=== PATIENT | male | born 1955 | race Caucasian/White ===

== ENCOUNTER 2017-11-15 12:45 | Observation (INO) ==
--- NOTE | 2017-11-15 13:11 | Emergency Department Note ---
Disposition Clinical Impression: Rhabdomyolysis due to statin therapy, Renal insufficiency HTN (hypertension) Qualifiers: Hypertension type: essential hypertension Qualified Code(s): I10 - Essential ( primary) hypertension Disposition: Admitted As Inpatient Condition: Fair Time of Disposition: 18:00 Extremity Problem HPI - General Chief complaint: ED Extremity Problem,Nontraumatic Stated complaint: muscle pain Time Seen by Provider: 11/15/17 13:09 Source: patient, family Mode of arrival: ambulatory Limitations: no limitations Nursing Notes Reviewed: Yes Vital Signs Reviewed: Yes - History of Present Illness HPI Narrative: 62-year-old male with past medical history of hypertension and hyperlipidemia presents to the emergency department complaining of lower extremity pain and mild swelling. This started yesterday and was initially located in bilateral legs in both the calves and thighs however he tells me the pain in his left lower extremity resolved as of this morning but the right-sided pain and mild swelling persist. His primary care provider, Ashwini Figueroa PIPELINER in [place]; started patient on Zestoretic and Lipitor 6 months ago. . Patient tells me he is also being worked up for abdominal pain, right upper quadrant, 30 pound weight loss in the past several months recently seen by Dr. Castellon who is recommending ultrasound of the liver. Pain Scale: 5 - Related Data Home Medications Medication Instructions Recorded Confirmed Atorvastatin [Lipitor] 40 mg PO HS 11/15/17 11/15/17 Lisinopril-HCTZ 20-12.5 [Prinzide 1 tab PO DAILY 11/15/17 11/15/17 20-12.5] Allergies Allergy/AdvReac Type Severity Reaction Status Date / Time No Known Allergies Allergy Verified 11/15/17 13:38 Constitutional: Denies: fever, chills, weakness Eyes: Denies: eye pain, eye discharge, vision change ENT ED: Denies: ear pain, throat pain, dental pain, hearing loss, epistaxis, congestion, dysphagia Cardiovascular: Denies: chest pain, palpitations, dyspnea on exertion, syncope Respiratory: Denies: cough, dyspnea, wheezes, hemoptysis, stridor Gastrointestinal: Denies: abdominal pain, nausea, vomiting, diarrhea, constipation, hematemesis, melena, hematochezia Musculoskeletal: Denies: back pain, neck pain, arthralgia, myalgia Integumentary: Denies: rash, abrasion, lesions Neurological: Denies: headache, weakness, confusion, abnormal gait, vertigo Hematological/Lymphatic: Denies: easy bleeding, easy bruising Physical Exam - General Limitations: no limitations General appearance: alert, in no apparent distress - Head Head exam: atraumatic, normocephalic, normal inspection - Eye Eye exam: Present: normal appearance, PERRL, EOMI - ENT ENT exam: normal exam, normal oropharynx, mucous membranes moist - Neck Neck exam: Present: normal inspection, full ROM, trachea midline - Chest Chest inspection: Present: normal inspection, symmetric chest wall rise - Respiratory Respiratory exam: Present: normal lung sounds bilaterally - Cardiovascular Cardiovascular exam: Present: regular rate, normal rhythm, normal heart sounds - Abdominal Exam Abdominal exam: Present: soft, Non-Tender. Absent: tenderness, distention, guarding, rebound, rigidity - Expanded Lower Extremity Exam Hip/Pelvis exam: Present: tenderness (RLE at calf), swelling (Trace pitting). Absent: laceration, ecchymosis, erythema Upper leg exam: Present: tenderness. Absent: swelling, ecchymosis, erythema Knee exam: Absent: tenderness, swelling - Neurological Exam Neurological exam: Present: alert, oriented X3 Course Course Narrative: Patient seen and examined at bedside. He is in no acute distress. Following laboratory findings including elevated CK we gave a fluid bolus and started IVF @150 cc/hr and I discussed the case with hospitalist Dr. Boyce who accepted the patient Vital Signs Temperature 97.6 F 11/15/17 13:03 Pulse Rate 89 11/15/17 13:03 Respiratory Rate 16 11/15/17 13:03 Blood Pressure 136/84 11/15/17 13:03 O2 Sat by Pulse Oximetry 97 11/15/17 13:03 Temperature 98.1 F 11/15/17 19:41 Pulse Rate 70 11/15/17 19:41 Respiratory Rate 16 11/15/17 19:41 Blood Pressure 119/68 11/15/17 19:41 O2 Sat by Pulse Oximetry 98 11/15/17 19:41 Oxygen Delivery Oxygen Delivery Room Air Extremity Problem, N[place] - [facility] Narrative Medical decision making narrative: CK elevated, patient has rhabdomyolysis. I suspect this is due to his statin as the median onset of myopathy following initiation of statin therapy is approximately 6 months and patient denies any recent trauma, falls, etc. Although patient had bilateral lower extremity pain and swelling yesterday, today it is unilateral so we will obtain d-dimer . D-dimer was elevated which may be due to his rhabdomyolysis but we will obtain Doppler studies of his lower extremities to rule out DVT. - Lab Data Lab results reviewed: Yes I reviewed the patient's lab results. Result diagrams: 11/15/17 13:54 11/15/17 13:54 Lab Results 11/15/17 11/15/17 11/15/17 Range/Units 13:54 13:54 13:54 WBC 10.8 (4.3-11.1) K/mcL RBC 5.02 (4.19-5.50) M/mcL Hgb 15.1 (12.9-16.9) g/dL Hct 43.3 (37.5-50.1) % MCV 86.3 (83.0-100.0) fL MCH 30.1 (28.0-33.3) pg MCHC 34.9 (31.6-35.5) g/dL RDW 14.1 (11.5-14.5) % Plt Count 236 (140-400) K/mcL MPV 10.7 (9.4-12.4) fL Immature Gran % 0.3 (0-4) % Seg Neutrophils % 60.1 % Lymphocytes % 26.4 % Monocytes % 5.7 % Eosinophils % 6.8 % Basophils % 0.7 % Neutrophils # 6.5 (1.6-8.9) K/mcL Lymphocytes # 2.8 (0.6-4.6) K/mcL Monocytes # 0.6 (0.0-1.3) K/mcL Eosinophils # 0.7 H (0.0-0.6) K/mcL Basophils # 0.1 (0.0-0.2) K/mcL D-Dimer 1728 H (0-500) ng/mLFEU Sodium 133 L (136-145) mEq/L Potassium 4.6 (3.5-5.1) mEq/L Chloride 107 (98-107) mEq/L Carbon Dioxide 22 L (23-29) mEq/L BUN 33 H (8-23) mg/dL Creatinine 1.64 H (0.70-1.30) mg/dL Est GFR ( Amer) 52 L (> 60) Est GFR (Non-Af Amer) 43 L (> 60) BUN/Creatinine Ratio 20 (6-26) Glucose 121 H (70-105) mg/dL Calculated Osmolality 285 (280-300) Calcium 9.5 (8.6-10.3) mg/dL Total Bilirubin 0.5 (0.3-1.0) mg/dL Direct Bilirubin 0.0 (0.0-0.2) mg/dL Indirect Bilirubin 0.5 (0.0-1.2) mg/dL AST 61 H (13-39) Units/L ALT 41 (7-52) Units/L Alkaline Phosphatase 138 H (34-104) Units/L Creatine Kinase 2473 H (30-223) Units/L Serum Total Protein 7.1 (6.4-8.9) g/dL Albumin 4.0 (3.5-5.7) g/dL Globulin 3.1 (2.4-3.5) g/dL Albumin/Globulin Ratio 1.3 (1.1-2.2) Lipase 30 (11-82) Units/L - Radiology Data Radiology results reviewed: Yes I reviewed the patient's radiology results. Attestation Statement - Attestation Attestation: I, Ravinder Nance DO, examined this patient [id number] and my medical decision-making was reviewed with Jesús Esquivel PGY-3 Resident Physician. I agree with the documented findings, disposition and treatment plan as described except to the extent set forth below. Please see my progress notes for details.
[2017-11-15 14:07] LABS: Basophils # 0.1 K/mcL (0.0-0.2); Basophils % 0.7 %; Eosinophils # 0.7 K/mcL (0.0-0.6); Eosinophils % 6.8 %; Hematocrit 43.3 % (37.5-50.1); Hemoglobin 15.1 g/dL (12.9-16.9); Immature Granulocytes % 0.3 % (0-4); Lymphocytes # 2.8 K/mcL (0.6-4.6); Lymphocytes % 26.4 %; Mean Corpuscular HGB Conc 34.9 g/dL (31.6-35.5); Mean Corpuscular Hemoglobin 30.1 pg (28.0-33.3); Mean Corpuscular Volume 86.3 fL (83.0-100.0); Mean Platelet Volume 10.7 fL (9.4-12.4); Monocytes # 0.6 K/mcL (0.0-1.3); Monocytes % 5.7 %; Neutrophils # 6.5 K/mcL (1.6-8.9); Platelet Count 236 K/mcL (140-400); Red Blood Count 5.02 M/mcL (4.19-5.50); Red Cell Distribution Width 14.1 % (11.5-14.5); Segmented Neutrophils % 60.1 %
[2017-11-15 14:40] LABS: Albumin/Globulin Ratio 1.3 (1.1-2.2); Bilirubin,Indirect 0.5 mg/dL (0.0-1.2); Bilirubin,Total 0.5 mg/dL (0.3-1.0); Calcium 9.5 mg/dL (8.6-10.3); Globulin 3.1 g/dL (2.4-3.5); Potassium 4.6 mEq/L (3.5-5.1); Total Protein 7.1 g/dL (6.4-8.9)
--- NOTE | 2017-11-15 15:04 | Emergency Department Note ---
Disposition Clinical Impression: Rhabdomyolysis due to statin therapy, Renal insufficiency HTN (hypertension) Qualifiers: Hypertension type: essential hypertension Qualified Code(s): I10 - Essential ( primary) hypertension Disposition: Admitted As Inpatient Condition: Fair Time of Disposition: 16:35 General Adult HPI - General Chief complaint: ED Extremity Problem,Nontraumatic Stated complaint: muscle pain Time Seen by Provider: 11/15/17 13:09 Source: patient, family - History of Present Illness Pain Scale: 5 - Related Data Home Medications Medication Instructions Recorded Confirmed Atorvastatin [Lipitor] 40 mg PO HS 11/15/17 11/15/17 Lisinopril-HCTZ 20-12.5 [Prinzide 1 tab PO DAILY 11/15/17 11/15/17 20-12.5] Allergies Allergy/AdvReac Type Severity Reaction Status Date / Time No Known Allergies Allergy Verified 11/15/17 13:38 Past Medical History - Past Medical History Medical history: Reports: hyperlipidemia, hypertension Psychiatric history: Reports: no psych history - Social History Smoking Status: Current every day smoker Smokeless Tobacco Status: No Alcohol use: Reports: occasionally Drug use: Reports: none Physical Exam - General General appearance: alert, in no apparent distress Course Vital Signs Temperature 97.6 F 11/15/17 13:03 Pulse Rate 89 11/15/17 13:03 Respiratory Rate 16 11/15/17 13:03 Blood Pressure 136/84 11/15/17 13:03 O2 Sat by Pulse Oximetry 97 11/15/17 13:03 Temperature 97.6 F 11/15/17 13:27 Pulse Rate 89 11/15/17 13:27 Respiratory Rate 18 11/15/17 16:15 Blood Pressure 126/67 11/15/17 16:15 O2 Sat by Pulse Oximetry 97 11/15/17 13:27 Oxygen Delivery Oxygen Delivery Room Air Medical Decision Making - Lab Data Result diagrams: 11/15/17 13:54 11/15/17 13:54 Lab Results 11/15/17 11/15/17 11/15/17 Range/Units 13:54 13:54 13:54 WBC 10.8 (4.3-11.1) K/mcL RBC 5.02 (4.19-5.50) M/mcL Hgb 15.1 (12.9-16.9) g/dL Hct 43.3 (37.5-50.1) % MCV 86.3 (83.0-100.0) fL MCH 30.1 (28.0-33.3) pg MCHC 34.9 (31.6-35.5) g/dL RDW 14.1 (11.5-14.5) % Plt Count 236 (140-400) K/mcL MPV 10.7 (9.4-12.4) fL Immature Gran % 0.3 (0-4) % Seg Neutrophils % 60.1 % Lymphocytes % 26.4 % Monocytes % 5.7 % Eosinophils % 6.8 % Basophils % 0.7 % Neutrophils # 6.5 (1.6-8.9) K/mcL Lymphocytes # 2.8 (0.6-4.6) K/mcL Monocytes # 0.6 (0.0-1.3) K/mcL Eosinophils # 0.7 H (0.0-0.6) K/mcL Basophils # 0.1 (0.0-0.2) K/mcL D-Dimer 1728 H (0-500) ng/mLFEU Sodium 133 L (136-145) mEq/L Potassium 4.6 (3.5-5.1) mEq/L Chloride 107 (98-107) mEq/L Carbon Dioxide 22 L (23-29) mEq/L BUN 33 H (8-23) mg/dL Creatinine 1.64 H (0.70-1.30) mg/dL Est GFR ( Amer) 52 L (> 60) Est GFR (Non-Af Amer) 43 L (> 60) BUN/Creatinine Ratio 20 (6-26) Glucose 121 H (70-105) mg/dL Calculated Osmolality 285 (280-300) Calcium 9.5 (8.6-10.3) mg/dL Total Bilirubin 0.5 (0.3-1.0) mg/dL Direct Bilirubin 0.0 (0.0-0.2) mg/dL Indirect Bilirubin 0.5 (0.0-1.2) mg/dL AST 61 H (13-39) Units/L ALT 41 (7-52) Units/L Alkaline Phosphatase 138 H (34-104) Units/L Creatine Kinase 2473 H (30-223) Units/L Serum Total Protein 7.1 (6.4-8.9) g/dL Albumin 4.0 (3.5-5.7) g/dL Globulin 3.1 (2.4-3.5) g/dL Albumin/Globulin Ratio 1.3 (1.1-2.2) Lipase 30 (11-82) Units/L Attestation Statement - Attestation Attestation: I, Ravinder Nance DO, examined this patient [id number] and my medical decision-making was reviewed with Jesús Esquivel PGY-3, Resident Physician. I agree with the documented findings, disposition and treatment plan as described except to the extent set forth below. Please see my progress notes for details. 62-year-old male presents to the emergency room for evaluation bilateral lower extremity cramping and pain. Patient is a see symptoms on and off for the last several days. The left lower extremity appears to be better at this time the right lower extremity still has discomfort. Patient denies any trauma or injury. The erythematous changed recently as he was started on cholesterol medication 6 months ago. He denies any trauma injury. Denies fevers chills chest pain shortness of breath headache vision changes nausea vomiting or diarrhea. Nobody in the family is been ill or sick. Patient denies any history of arterial insufficiency or blood clots. Physical exam shows a well- appearing gentleman is in no apparent distress his lungs are clear his heart is regular his abdomen is soft nontender nondistended with no guarding no rigidity. His pelvis appears to be stable. Good femoral pulses. Bilateral lower extremities to have discomfort with palpation along the muscular beds of the legs. He does not have any redness swelling or asymmetry to the lower extremities. His DP pulses are symmetrical bilaterally but do have diminished presentation. His PT pulses are difficult to appreciate. Doppler will be completed to address appropriate arterial supply. The legs are warm to touch and there is no signs of mottling or discoloration to the skin at this point. Patient will have detailed workup completed this time looking for DVTs. Patient will have a d-dimer ordered at this time considering his well visit DVT score is very low. If the d-dimer is negative the clinical suspicion for DVT is low. Patient will have Doppler pulses based on bedside evaluation to be completed. Otherwise the remainder of esophagus will include CBC chemistry liver function testing along with fluid resuscitation and CPK. Disposition pending the full workup and treatment course. Chest x-ray and troponin were added on old EKG to address any other potential etiology. Patient has had a 30 pound weight loss that he was not attempting to do secondary to unknown presentation.. See detailed documentation of physical exam, medical intervention, medical decision-making and disposition in the resident physician' s note. No critical care provider the patient's treatment course at this time. 1500 D-dimer is elevated. Patient has newly found hyponatremia along with elevated renal insufficiency and an elevated CPK concerning for medication induced rhabdo. Patient will have 1 L of fluids provided at this time and then maintenance fluids started 150 mL per hour. Dopplers of the bilateral lower extremities will be ordered secondary to the patient's complaint of bilateral lower extremity swelling and pain in the admission process will be completed for rhabdo. 1545 Patient was discussed with the hospitals. Admission process to be established. No other acute concerns or issues noted this point. Patient is otherwise stable.. Bilateral Doppler studies are unremarkable this time for DVT. Patient will be admitted for definitive management
[2017-11-15] MEDS ORDERED: 0.9 % Sodium Chloride 1,000 ML IVC ONE (15:09)
[2017-11-15] MEDS ORDERED: 0.9 % Sodium Chloride 1,000 ML IVC SCH (15:15)
[2017-11-15] MEDS ORDERED: Naloxone 0.4 MG/ML INJ IVP PRN (15:59)
--- NOTE | 2017-11-15 16:04 | Internal Med History&Physical ---
Date of Encounter: 11/15/17 Time of Encounter: 16:02 Internal Medicine - H&P: HPI Chief complaint: Lower extremity pain - bilateral History of present illness: Mr. Riley is a 62 year old male history of hypertension, hyperlipidemia who presents with statin-induced mild rhabdomyolysis. Patient is under care of primary care provider and had been started on Lipitor 40 mg since June 2017 for high cholesterol blood work. He developed symptoms of bilateral lower extremity pain since yesterday that is progressive. Described pain as a soreness. Symptoms have been progressive leading to inability to walk today. It appears that the distribution of the rhabdomyolysis is localized to his bilateral leg muscle. Of note patient has been having a 30 pound weight loss in last 2-3 months and had been in the process of an outpatient workup by primary care doctor. It appears that his symptoms began after starting statin therapy. He is pending an outpatient liver ultrasound for PCP. He also had an evaluation with Dr. Castellon in the outpatient consisted of belly examination. EKG personally reviewed with rate of 72, normal sinus rhythm FINDINGS: The heart is normal in size. The lungs are clear with no focal consolidation, pleural effusion, or pneumothorax. The osseous structures are intact. XR/XR chest 2V IMPRESSION: No acute process. Past Med Surg Social Fam HX - Past Medical History Medical history: hyperlipidemia, hypertension Psychiatric history: no psych history - Past Surgical History Surgical History: non-contributory - Social History Smoking Status: Current every day smoker Smokeless Tobacco Status: No Alcohol use: occasionally Drug use: none Internal Medicine - H&P: Meds Atorvastatin [Lipitor] 40 mg PO HS 11/15/17 [History] Lisinopril-HCTZ 20-12.5 [Prinzide 20-12.5] 1 tab PO DAILY 11/15/17 [History] 3 Allergy/AdvReac Type Severity Reaction Status Date / Time No Known Allergies Allergy Verified 11/15/17 13:38 All Systems PM: A 10-system review of systems was performed and is negative for pertinent findings except as documented above in the HPI. Review of systems: ROS 14 point review of systems reviewed as best as possible given presentation. Pertinent positive or negative as per HPI or otherwise reviewed as negative - Constitutional Vitals: Temp Pulse Resp BP Pulse Ox 97.6 F 89 16 136/84 97 11/15/17 13:27 11/15/17 13:27 11/15/17 13:27 11/15/17 13:27 11/15/17 13:27 Exam: General - AAO x 3 Psych - Appropriate affect/speech. No agitation Eyes - ELIZABETH. Eye lids intact. No scleral icterus Heart - Sinus. RRR. S1 and S2 present. No added HS/murmurs appreciated. No elevated JVD appreciated. Lung - Adequate air entry b/l, No crackles/wheezes appreciated GI - Soft, non-tender. No hepatosplenomegaly/ascites. BS+ - No CVA/suprapubic tenderness or palpable bladder distension Skin - Intact. No rash/petechiae/ecchymosis. Warm extremities MSK - bilateral lower extremity pain on palpation Internal Med - H&P Results - Labs CBC & Chem 7: 11/15/17 13:54 11/15/17 13:54 - Assessment and plan (1) Rhabdomyolysis due to statin therapy Current Visit: Yes Status: Acute Assessment and plan: d/c statin IVF trend BMP and CPK watch vol overload (of note: US doppler of b/l LE ordered in the ED is pending for elevated d- dimer ?. Doubt clinical DVT. RLE only very mildly > LLE) (2) HTN (hypertension) Current Visit: Yes Status: Acute Assessment and plan: continue med Qualifiers: Hypertension type: essential hypertension Qualified Code(s): I10 - Essential (primary) hypertension (3) HLD (hyperlipidemia) Current Visit: Yes Status: Acute Assessment and plan: hold statin consider alternative agents on PCP f/u Qualifiers: Hyperlipidemia type: mixed hyperlipidemia Qualified Code(s): E78.2 - Mixed hyperlipidemia - Time Spent With Patient Total time spent is greater than 50% in coordination of care (as documented) at patient's floor/unit and/or counseling patient:
[2017-11-15] MEDS: 0.9 % Sodium Chloride 1,000 ML IVC SCH (17:17)
[2017-11-16] MEDS: 0.9 % Sodium Chloride 1,000 ML IVC SCH ×3 (01:54→21:30)
[2017-11-16] MEDS: *HR* Enoxaparin 30 MG/0.3 ML SYRINGE SQ SCH (05:12)
[2017-11-16 05:51] LABS: Alanine Aminotransferase 29 Units/L (7-52); Albumin 3.3 g/dL (3.5-5.7); Albumin/Globulin Ratio 1.3 (1.1-2.2); Alkaline Phosphatase 112 Units/L (34-104); Aspartate Amino Transferase 40 Units/L (13-39); BUN/Creatinine Ratio 18 (6-26); Bilirubin,Total 0.6 mg/dL (0.3-1.0); Blood Urea Nitrogen 26 mg/dL (8-23); Calcium 8.8 mg/dL (8.6-10.3); Carbon Dioxide 23 mEq/L (23-29); Chloride 112 mEq/L (98-107); Creatine Kinase 1408 Units/L (30-223); Globulin 2.6 g/dL (2.4-3.5); Glucose 100 mg/dL (70-105); Osmolality,Calculated 289 (280-300); Potassium 4.5 mEq/L (3.5-5.1); Sodium 137 mEq/L (136-145); Total Protein 5.9 g/dL (6.4-8.9); eGFR For African Americans > 60 (> 60); eGFR For Non-African Americans 51 (> 60)
[2017-11-16] MEDS: Lisinopril-HCTZ 20-12.5mg TABLET PO SCH (08:12)
--- NOTE | 2017-11-16 12:23 | Internal Med Progress Note ---
Date of Encounter: 11/16/17 Time of Encounter: 12:22 - Assessment and plan (1) Rhabdomyolysis due to statin therapy Current Visit: Yes Status: Acute Assessment and plan: Presented with S/SX bilateral lower extremity pain and weakness He reports that the extremity pain has been ongoing since beginning Lipitor in June has been progressive; weakness symptoms or new Workup in the ED reveals elevated serum creatinine 1.64, BUN 26 and GFR of 43. CK 2473 on arrival Habits have improved. Serum creatinine 1.41 this morning, BUN 26 and GFR 51. CK 1408 Patient on IVF at 100 mL per hour, increase IVF 0.9% normal saline to 125 mL per hour Continue to closely monitor renal function-trend BMP and CPK Watch for S/sex of volume overload If renal function and CK continues to improve consider discharge Patient has been educated that he needs to avoid statin use Remains hemodynamically stable Has had adequate urinary output (2) HTN (hypertension) Current Visit: Yes Status: Acute Assessment and plan: History of HTN, BP stable. Continue anti-HTN medications Qualifiers: Hypertension type: essential hypertension Qualified Code(s): I10 - Essential (primary) hypertension (3) HLD (hyperlipidemia) Current Visit: Yes Status: Acute Assessment and plan: hold statin in the setting of rhabdomyolysis Qualifiers: Hyperlipidemia type: mixed hyperlipidemia Qualified Code(s): E78.2 - Mixed hyperlipidemia (4) Weight loss, unintentional Current Visit: Yes Status: Acute Assessment and plan: Patient reporting 30 pound weight loss, unintentional-etiology unclear Reports that this began occurring when he began taking simvastatin Since then he has had nausea, flatulence and diarrhea Gallbladder US shows gallstones with no signs of biliary dilatation or cholecystitis Being followed by Dr. Castellon outpatient-pending liver US Referral to Dr. Recinos from Dr. Castellon but patient has yet to see (5) DVT prophylaxis Current Visit: Yes Status: Acute Assessment and plan: LOVENOX - Time Spent With Patient Total time spent is greater than 50% in coordination of care (as documented) at patient's floor/unit and/or counseling patient: Greater than 35 minutes - Subjective Interval history: Patient seen and examined at bedside today. No acute changes overnight. Patient reports that his bilateral lower extremity weakness and pain is improving. Reporting adequate urine output - Constitutional Vitals: Temp Pulse Resp BP Pulse Ox 97.9 F 58 14 132/73 97 11/16/17 11:15 11/16/17 11:15 11/16/17 11:15 11/16/17 11:15 11/16/17 11:15 General appearance: Present: A&O X 3 - Head Head exam: Present: atraumatic, normocephalic - Eye Eye exam: Present: PERRL, conjuntiva pink, sclera anicteric Pupils: Present: PERRL - Neck Neck exam general surgery: Present: supple, trachea midline. Absent: lymphadenopathy - Respiratory Respiratory exam: Present: CTAB. Absent: accessory muscle use, rales, rhonchi, wheezes - Cardiovascular Cardiovascular exam: Present: RRR, +S1, +S2. Absent: diastolic murmur, gallop, rubs, systolic murmur - GI/Abdominal GI/Abdominal exam: Present: normal bowel sounds, soft, no peritoneal signs. Absent: distended, tenderness - Extremities Exam Extremities exam: Present: normal inspection, tenderness (Mild BLE tenderness to palpation, Doppler studies negative for DVT), warm, radial pulses palpable and symmetrical. Absent: calf tenderness, cyanotic, normal capillary refill, pedal edema - Neurological Exam Neurological exam: Present: CN II-XII intact, oriented X3, no focal deficits. Absent: pronater drift, facial droop, speech deficit - Skin Skin exam: Present: dry, intact Internal Medicine: Result - Labs CBC & Chem 7: 11/15/17 13:54 11/16/17 05:04 Labs: [facility] 11/16/17 05:04 Sodium 137 Potassium 4.5 Chloride 112 H Carbon Dioxide 23 BUN 26 H Creatinine 1.41 H Glucose 100 Calcium 8.8 Liver Function 11/16/17 Range/Units 05:04 Total Bilirubin 0.6 (0.3-1.0) mg/dL AST 40 H (13-39) Units/L ALT 29 (7-52) Units/L Alkaline Phosphatase 112 H (34-104) Units/L Albumin 3.3 L (3.5-5.7) g/dL - ABG Interpretation ABG results: PT/INR, D-dimer D-Dimer 1728 ng/mLFEU (0-500) H 11/15/17 13:54 Consult Discharge Plan - Plan Referrals: Ashwini Morse CNP [Primary Care Provider] - Maureen Bonilla [Family Provider] -
[2017-11-17 05:35] LABS: Basophils # 0.1 K/mcL (0.0-0.2); Basophils % 0.8 %; Eosinophils # 0.9 K/mcL (0.0-0.6); Eosinophils % 9.7 %; Hematocrit 36.5 % (37.5-50.1); Immature Granulocytes % 0.2 % (0-4); Lymphocytes # 3.9 K/mcL (0.6-4.6); Lymphocytes % 43.8 %; Mean Corpuscular HGB Conc 34.2 g/dL (31.6-35.5); Mean Corpuscular Hemoglobin 29.9 pg (28.0-33.3); Mean Corpuscular Volume 87.3 fL (83.0-100.0); Monocytes # 0.6 K/mcL (0.0-1.3); Monocytes % 6.4 %; Neutrophils # 3.5 K/mcL (1.6-8.9); Platelet Count 210 K/mcL (140-400); Red Blood Count 4.18 M/mcL (4.19-5.50); Red Cell Distribution Width 14.3 % (11.5-14.5); Segmented Neutrophils % 39.1 %
[2017-11-17 05:40] LABS: Hemoglobin 12.5 g/dL (12.9-16.9)
[2017-11-17 05:48] LABS: BUN/Creatinine Ratio 16 (6-26); Blood Urea Nitrogen 21 mg/dL (8-23); Calcium 8.7 mg/dL (8.6-10.3); Carbon Dioxide 21 mEq/L (23-29); Chloride 113 mEq/L (98-107); Glucose 91 mg/dL (70-105); Osmolality,Calculated 289 (280-300); Potassium 4.2 mEq/L (3.5-5.1); Sodium 138 mEq/L (136-145); eGFR For African Americans > 60 (> 60); eGFR For Non-African Americans 54 (> 60)
[2017-11-17] MEDS: *HR* Enoxaparin 30 MG/0.3 ML SYRINGE SQ SCH (06:13)
[2017-11-17] MEDS: Lisinopril-HCTZ 20-12.5mg TABLET PO SCH (09:15)
[2017-11-17] MEDS: 0.9 % Sodium Chloride 1,000 ML IVC SCH (09:21)
[2017-11-17 11:07] VITALS: BP 130/81
--- NOTE | 2017-11-17 11:12 | Discharge Summary ---
- NOTES TO OUTPATIENT PROVIDER Notes to Outpatient Provider: Patient admitted with rhabdomyolysis secondary to simvastatin. Serum creatinine and CPK improving upon discharge. Instructed to have follow-up lab work drawn this coming Sunday11/19/17. Also instructed to follow-up with PCP within 1 week of discharge Orders not resulted at time of discharge: Pending orders 11/18/17 04:00 Basic Metabolic Panel AM 0400 cpk [Creatine Kinase] DAILY 11/19/17 04:00 Basic Metabolic Panel AM 0400 Date of Encounter: 11/17/17 Time of Encounter: 11:09 - Discharge Diagnosis (1) Rhabdomyolysis due to statin therapy Priority: Primary Status: Acute Assessment and Plan: Presented with S/SX bilateral lower extremity pain and weakness He reports that the extremity pain has been ongoing since beginning Lipitor in June has been progressive; weakness symptoms or new Workup in the ED reveals elevated serum creatinine 1.64, BUN 26 and GFR of 43. CK 2473 on arrival Renal function has improved today's serum creatinine 1.34, GFR 54. Creatinine kinase 770 Instructed to continue taking adequate amount of fluid upon discharge Watch for S/sx of volume overload; patient educated on signs and symptoms of volume overload, verbalizes understanding, denies any further questions Patient has been educated that he needs to avoid statin use, verbalizes understanding, denies any further questions Remains hemodynamically stable Stable, instructed to have follow-up labs this coming Sunday11-19-17 for repeat serum creatinine and CK. Additionally, instructed to follow-up with PCP with only to discharge. Also, patient told to seek care at the ED showed leg pain, weakness and muscle cramps return. Patient instructed to keep follow-up appointments with Dr. Castellon and Dr. Recinos for further evaluation of weight loss. Note-PCP: Please ensure patient follows up with both Dr. Castellon and Dr. Recinos for evaluation of weight loss (2) HTN (hypertension) Priority: Secondary Status: Acute Assessment and Plan: History of HTN, BP stable. Continue anti-HTN medications and DC Qualifiers: Hypertension type: essential hypertension Qualified Code(s): I10 - Essential (primary) hypertension (3) HLD (hyperlipidemia) Priority: Secondary Status: Acute Assessment and Plan: hold statin, do not restart Qualifiers: Hyperlipidemia type: mixed hyperlipidemia Qualified Code(s): E78.2 - Mixed hyperlipidemia (4) Weight loss, unintentional Priority: Secondary Status: Acute Assessment and Plan: Patient reporting 30 pound weight loss, unintentional-etiology unclear Reports that this began occurring when he began taking simvastatin Since then he has had nausea, flatulence and diarrhea Gallbladder US shows gallstones with no signs of biliary dilatation or cholecystitis Being followed by Dr. Castellon outpatient-pending liver US-patient instructed to contact Dr. Castellon's office and confirm liver ultrasound Referral to Dr. Recinos from Dr. Castellon but patient has yet to see-patient instructed to follow-up with Dr. Recinos for further evaluation of nausea and weight loss Hospital course: Mr. Riley is a 62 year old male Please see assessment and plan for hospital course Discharge discussed with: patient, family, nurse - Time Spent with Patient Total time spent providing and/or coordinating discharge services: Less than 30 minutes - Discharge Medications Home Medications: Lisinopril-HCTZ 20-12.5 [Prinzide 20-12.5] 1 tab PO DAILY 11/15/17 [History] Allergies/Adverse Reactions: 3 Allergy/AdvReac Type Severity Reaction Status Date / Time No Known Allergies Allergy Verified 11/15/17 13:38 Date of admission: 11/15/17 15:58 Primary care physician: Ashwini Morse Consults: 11/15/17 17:10 Consult to Vacuum Cleaner Mechanic [CONS] Routine Reason for SW Consult: 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 Discharging clinician: Sukhdeep Bliss Anticipated date of discharge: 11/17/17 - Constitutional Vitals: Temp Pulse Resp BP Pulse Ox 98.3 F 67 16 130/81 98 11/17/17 11:05 11/17/17 11:05 11/17/17 11:05 11/17/17 11:05 11/17/17 11:05 General appearance: Present: A&O X 3 - Head Head exam: Present: atraumatic, normocephalic - Eye Eye exam: Present: PERRL, conjuntiva pink, sclera anicteric Pupils: Present: PERRL - Neck Neck exam general surgery: Present: supple, trachea midline. Absent: lymphadenopathy - Respiratory Respiratory exam: Present: CTAB. Absent: accessory muscle use, rales, rhonchi, wheezes - Cardiovascular Cardiovascular exam: Present: RRR, +S1, +S2. Absent: diastolic murmur, gallop, rubs, systolic murmur - GI/Abdominal GI/Abdominal exam: Present: normal bowel sounds, soft, no peritoneal signs. Absent: distended, tenderness - Extremities Exam Extremities exam: Present: warm, radial pulses palpable and symmetrical. Absent : calf tenderness, cyanotic, pedal edema - Neurological Exam Neurological exam: Present: CN II-XII intact, oriented X3, no focal deficits. Absent: pronater drift, facial droop, speech deficit - Skin Skin exam: Present: dry, intact - Patient Status Disposition: Home, Self-Care Condition: Fair Functional capacity at discharge: independent ambulation Overall status at discharge: patient is progressing back to baseline - Discharge Instructions Follow Up With: Ashwini Morse CNP [Primary Care Provider] - Maureen Bonilla [Family Provider] - - Diet and Activity Activity: increase activity as tolerated, resume usual activities as tolerated Diet: advance to your usual diet
--- NOTE | 2017-11-18 21:15 | Electrocardiograph Report ---
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
== END 2017-11-17 12:15 | disposition home or self-care (01) ==
LOC: 3BNU 12:45 → EMEROO 12:45 → 3BNU 16:17
PROVIDERS: ADMIT Family Medicine; ATTEND Family Medicine